=== PATIENT | male | born 1965 | race Hispanic/Latino ===

== ENCOUNTER 2019-01-26 21:37 | Emergency (ER) | payer OTHER ==
[2019-01-26] MEDS ORDERED: Sodium Chloride 0.9% 1,000 ML ONE (22:14)
[2019-01-26] MEDS ORDERED: Ketorolac Tromethamine 30 MG/ML VIAL ONE (22:14)
[2019-01-26 22:18] LABS: Hemoglobin 15.8 g/dL (14.0-18.0); Lymphocytes 9 % (21-51); MDiff Complete? YES; Mean Corpuscular HGB CONC 32.3 g/dL (32.0-36.0); Mean Corpuscular Hemoglobin 28.2 pg (27.0-31.0); Mean Corpuscular Volume 87.4 fL (78.0-98.0); Mean Platelet Volume 7.4 fL (7.4-10.4); Monocytes 3 % (0-10); Neutrophil 88 % (42-75); Platelet Count 202 thou/uL (130-400); Platelet Morphology Comment Appears Adequate; RBC Distribution Width 11.7 % (11.5-14.5); RBC Morphology Normal; Red Blood Cell (RBC) Count 5.61 mill/uL (4.70-6.10); White Blood Cell (WBC) Count 11.8 thou/uL (4.8-10.8)
[2019-01-26 22:32] LABS: ALT (SGPT) 49 U/L (8-55); AST (SGOT) 34 U/L (5-34); Albumin 4.4 g/dL (3.5-5.0); Alkaline Phosphatase 87 U/L (40-150); Anion Gap 19 mmol/L (10-20); BUN (Urea Nitrogen) 37 mg/dL (8.4-25.7); Bilirubin, Total 0.3 mg/dL (0.2-1.2); Calc. Creatinine Clearance 0 mL/min (70-130); Carbon Dioxide 19 mmol/L (22-29); Chloride 104 mmol/L (98-107); Estimated GFR-MDRD 15; Glucose 195 mg/dL (70-105); Potassium 4.5 mmol/L (3.5-5.1); Protein, Total 7.4 g/dL (6.0-8.3); Sodium 137 mmol/L (136-145)
[2019-01-26] MEDS ORDERED: cefTRIAXone\\ROCEPHIN 1 GM VIAL ONE (22:33)
[2019-01-26] MEDS ORDERED: Tamsulosin HCl 0.4 MG CAP ONE (22:33)
[2019-01-26] MEDS ORDERED: Sodium Chloride 0.9% 100 ML ONE (22:34)
--- NOTE | 2019-01-26 22:37 | CT ---
CT of abdomen and pelvis: 01/26/2019 COMPARISON: None HISTORY: Right back pain, history of left nephrectomy TECHNIQUE: Axial CT imaging at 5 mm intervals from lung bases through pubic symphysis without contras t. Coronal reformatted imaging obtained. FINDINGS: Lack of contrast media limits assessment of the viscera, bowel, vascular structures, and fo r lymphadenopathy. The visualized lung bases are unremarkable. The liver dome is not fully imaged. Imaged hepatic parenc hyma unremarkable. Gallbladder, spleen, pancreas, and adrenal glands are grossly unremarkable. Left kidney is absent. There are numerous subcentimeter calculi seen throughout the right kidney. There is mild right-sided hydronephrosis and perinephric stranding. There is mild right-sided hydroureter as well. There is a stone within the distal right ureter on axial image 82 at the level of the ureter ovesicular junction measuring approximately 3-4 mm. There is diverticulosis of the descending colon and sigmoid colon without evidence for diverticulitis . Appendix is unremarkable. No evidence for bowel obstruction. There is atherosclerotic calcification of the infrarenal abdominal aorta. No acute osseous abnormality. IMPRESSION: Obstructive uropathy on the right secondary to a 3-4 mm obstructing stone within the dist al right ureter at the level of the UVJ. Numerous intrarenal punctate calculi on the right as well.
== END 2019-01-26 23:31 | disposition home or self-care (01) ==
LOC: NAV ERS 21:37
DX: N13.2 Hydronephrosis with renal and ureteral calculous obstruction (principal); N28.9 Disorder of kidney and ureter, unspecified; R73.9 Hyperglycemia, unspecified
CPT/HCPCS: 36415; 74176; 80053; 85025; 96361; 96365; 96375; J0696; J1885; J3490; J7050